=== PATIENT | female | born 1955 | race Caucasian/White ===

== ENCOUNTER 2021-12-20 08:00 | Outpatient (CLI) | payer BC ==
[~2021-12-20] VITALS: Ht 165.1 cm; Wt 73.0 kg
[2021-12-21] MEDS ORDERED: INDOMETHACIN 50 MG SUPP.RECT RC ONE (07:10)
== END 2021-12-20 16:00 | disposition home or self-care (01) ==
LOC: SLB 08:00 → SDS 12-21 06:01 → SMU 12-21 06:13 → EDBD 12-21 07:30 → EDSTATUS 12-21 07:30
PROVIDERS: ATTEND Internal Medicine Gastroenterology
DX: Z01.812 Encounter for preprocedural laboratory examination (principal); C25.9 Malignant neoplasm of pancreas, unspecified; Z20.822 Contact with and (suspected) exposure to COVID-19
CPT/HCPCS: 36415; U0003

== ENCOUNTER 2022-01-02 05:28 | Day surgery (SDC) | payer BC ==
[~2022-01-02] VITALS: Ht 165.1 cm; Wt 71.4 kg
[2022-01-02] MEDS ORDERED: INDOMETHACIN 50 MG SUPP.RECT RC ONE (06:30)
[2022-01-02] MEDS ORDERED: NS 1000 ML IV.SOLN IV ONE (07:13)
[2022-01-02] MEDS ORDERED: fentaNYL CITRATE/PF 100 MCG/2 ML AMP ONE (07:13)
[2022-01-02] MEDS ORDERED: MIDAZOLAM HCL 2 MG/2 ML VIAL (VERSED) ONE (07:13)
[2022-01-02] MEDS ORDERED: PROPOFOL 200MG/ 20ML VIAL (DIPRIVAN) IV ONE (07:13)
[2022-01-02] MEDS ORDERED: ONDANSETRON HCL 4 MG/2 ML VIAL ONE (07:13)
[2022-01-02] MEDS ORDERED: LIDOCAINE 1% 10 MG/ML, 20 ML MDV ONE (07:13)
[2022-01-02] MEDS ORDERED: METOCLOPRAMIDE HCL 10 MG/2 ML VIAL IVP PRN (07:45)
[2022-01-02] MEDS ORDERED: HYDROmorphone 1 MG/ML INJ. CARTRIDGE IVP PRN ×2 (07:45)
[2022-01-02] MEDS: NACL 0.9% 1,000 ML IV SCH ×2 (08:10→08:25)
[2022-01-02 12:03] VITALS: BP_SYST 134
== END 2022-01-02 10:15 | disposition home or self-care (01) ==
LOC: SDS 05:28 → SMU 05:30 → SDS 10:15
PROVIDERS: ATTEND Internal Medicine Gastroenterology
DX: T85.520A Displacement of bile duct prosthesis, initial encounter (principal); C25.9 Malignant neoplasm of pancreas, unspecified; Z20.822 Contact with and (suspected) exposure to COVID-19; K21.9 Gastro-esophageal reflux disease without esophagitis; Y83.8 Other surgical procedures as the cause of abnormal reaction of the patient, or of later complication, without mention of misadventure at the time of the procedure
CPT/HCPCS: 36415; 43276; 74330; U0003; G0378; J2001; J3465; J2405; J2704; J3010; Q9967; J7030; C1769 ×2; C1874; 43274; 76000